=== PATIENT | male | born 1990 | race Caucasian/White ===

== ENCOUNTER 2016-09-05 13:41 | Emergency (ER) | payer MEDICAID, OTHER ==
[~2016-09-05] VITALS: Ht 182.9 cm; Wt 138.5 kg
[~2016-09-05 13:41] MED LIST: ACYC800T57 PO; IBUP-1542 PO
[2016-09-05 13:52] VITALS: Ht 182.9 cm; Wt 138.5 kg
[2016-09-05] MEDS ORDERED: CEFTRIAXONE 250 MG INJ IM ONE (14:30)
[2016-09-05] MEDS ORDERED: AZITHROMYCIN 250 MG TAB PO ONE (14:30)
[2016-09-05 14:33] LABS: URINE BLOOD (Dip) POC Negative (NEGATIVE)
--- NOTE | 2016-09-05 14:33 | ERD ---
ER Documentation Chief Complaint Date/Time DATE: 09/05/16 TIME: 14:31 Chief Complaint genital problem HPI This is a 26-year-old male who presents to the emergency department today to be treated for sexually transmitted infection. Patient stated that he had intercourse with somebody that was outside of his normal relationship and that person had tested positive for chlamydia. Patient denies any fevers, chills, dysuria, penile discharge, abdominal pain. ROS All systems reviewed and are negative except as per history of present illness. Medications Home Meds Active Scripts Acyclovir* (Zovirax*) 800 Mg Tablet, 800 MG PO 5 TIMES DAILY for 7 Days, TAB Prov:SHERI GEORGE 10/10/15 Ibuprofen* (Motrin*) 600 Mg Tab, 600 MG PO Q6, #20 TAB Prov:MARIZOL LEE PA-C 08/30/15 Allergies Allergies: Coded Allergies: No Known Allergy (Unverified , 10/10/15) PMhx/Soc History of Surgery: No Anesthesia Reaction: No Hx Neurological Disorder: No Hx Respiratory Disorders: No Hx Cardiac Disorders: No Hx Psychiatric Problems: No Hx Miscellaneous Medical Probl: No Hx Alcohol Use: Yes Hx Substance Use: Yes (Crystal meth) Hx Tobacco Use: Yes Physical Exam Vitals Vital Signs Date Time Temp Pulse Resp B/P Pulse Ox O2 Delivery O2 Flow Rate FiO2 09/05/16 13:52 98.0 92 19 135/70 100 Physical Exam Const: Obese, no acute distress Head: Atraumatic Eyes: Normal Conjunctiva ENT: Normal External Ears, Nose and Mouth. Neck: Full range of motion..~ No meningismus. Resp: Clear to auscultation bilaterally Cardio: Regular rate and rhythm, no murmurs Abd: Soft, non tender, non distended. Normal bowel sounds Skin: No petechiae or rashes Neur: Awake and alert Psych: Normal Mood and Affect Results 24 hrs Laboratory Tests Test 09/05/16 14:35 Bedside Urine pH (LAB) 6.5 Bedside Urine Protein (LAB) Negative Bedside Urine Glucose (UA) Negative Bedside Urine Ketones (LAB) Negative Bedside Urine Blood Negative Bedside Urine Nitrite (LAB) Negative Bedside Urine Leukocyte Esterase (L Negative Current Medications Medications (Trade) Dose Ordered Sig/Peggy Route PRN Reason Start Time Stop Time Status Last Admin Dose Admin Ceftriaxone Sodium (Rocephin) 250 mg ONCE ONCE IM 09/05/16 14:30 09/05/16 14:31 DC 09/05/16 14:33 Azithromycin (Zithromax) 1,000 mg ONCE ONCE PO 09/05/16 14:30 09/05/16 14:31 DC 09/05/16 14:32 Procedures/MDM This 26-year-old male who presents to the emergency department today to be treated for possible chlamydia. Patient is in the exam room with his partner who is also requesting to be tested. Patient indicated that he had intercourse with somebody outside of his normal relationship and that person had chlamydia. Patient denied any symptoms at this time. He has no abdominal pain on physical exam. Patient declined a general exam and will therefore be treated empirically with Rocephin and azithromycin for gonorrhea and chlamydia. I did obtain a UA and the urine was sent for gonorrhea and chlamydia UA is negative for infection. Patient was instructed to have all sexual partners tested and treated prior to sexual intercourse. Patient understood At this time the patient is stable for discharge and outpatient management. Patient should follow up with their PCP in the next 1-2 days. They may return to the emergency department sooner for any persistent or worsening of symptoms. Patient understood and agreed with the plan. JAI WADE PA-C September 05, 2016 14:33
== END 2016-09-05 15:07 | disposition home or self-care (01) ==
LOC: FTE 13:41
DX: Z11.3 Encounter for screening for infections with a predominantly sexual mode of transmission (principal); Z87.891 Personal history of nicotine dependence
CPT/HCPCS: 81003; 87591; 96372; J0696; Z7502; Z7610

== ENCOUNTER 2017-03-15 15:20 | Emergency (ER) | payer OTHER ==
[~2017-03-15] VITALS: Ht 180.3 cm; Wt 130.0 kg
[2017-03-15 15:39] VITALS: Ht 180.3 cm; Wt 130.0 kg
[2017-03-15] MEDS ORDERED: ACETAMINOPHEN 500 MG TAB PO STA (17:05)
[2017-03-15] MEDS ORDERED: CEPHALEXIN 500 MG CAP PO STA (17:05)
[2017-03-15] MEDS ORDERED: TRIMETHOPRIM/SULFAMETHOX (DS) TAB PO STA (17:05)
[2017-03-15] MEDS ORDERED: SULF1TAB31 PO (17:07)
[2017-03-15] MEDS ORDERED: CEPH-443 PO (17:07)
--- NOTE | 2017-03-15 17:31 | ERD ---
ER Documentation Chief Complaint Chief Complaint right forearm pain following inj of meth, missed the vein, swollen/px x3day HPI 26-year-old female presenting to the emergency department complaining of moderate right forearm pain and redness status post injecting meth 2 days prior to being seen. She denies any restricted range of motion. Denies fevers. Denies medications today ROS All systems reviewed and are negative except as per history of present illness. Medications Home Meds Active Scripts Sulfamethoxazole/Trimethoprim* (Bactrim Ds* Tablet) 1 Each Tablet, 1 TAB PO BID , #14 TAB Prov:BEATRIZ BENJAMIN PA-C 03/15/17 Cephalexin* (Keflex*) 500 Mg Capsule, 500 MG PO QID for 7 Days, CAP Prov:BEATRIZ BENJAMIN PA-C 03/15/17 Acyclovir* (Zovirax*) 800 Mg Tablet, 800 MG PO 5 TIMES DAILY for 7 Days, TAB Prov:SHERI GEORGE 10/10/15 Ibuprofen* (Motrin*) 600 Mg Tab, 600 MG PO Q6, #20 TAB Prov:MARIZOL LEE PA-C 08/30/15 Allergies Allergies: Coded Allergies: No Known Allergy (Unverified , 03/15/17) PMhx/Soc Medical and Surgical Hx: pt denies Medical Hx, pt denies Surgical Hx History of Surgery: No Anesthesia Reaction: No Hx Neurological Disorder: No Hx Respiratory Disorders: No Hx Cardiac Disorders: No Hx Psychiatric Problems: No Hx Miscellaneous Medical Probl: No Hx Alcohol Use: Yes Hx Substance Use: Yes (Crystal meth) Hx Tobacco Use: Yes Smoking Status: Current every day smoker Physical Exam Vitals Vital Signs Date Time Temp Pulse Resp B/P Pulse Ox O2 Delivery O2 Flow Rate FiO2 03/15/17 15:39 99.6 97 20 159/74 99 Physical Exam Const: [] Head: Atraumatic Eyes: Normal Conjunctiva ENT: Normal External Ears, Nose and Mouth. Neck: Full range of motion..~ No meningismus. Resp: Clear to auscultation bilaterally Cardio: Regular rate and rhythm, no murmurs Abd: Soft, non tender, non distended. Normal bowel sounds Skin: warm erythema induration patch on right forearm ~8cm patch Back: No midline or flank tenderness Ext: No cyanosis, or edema Neur: Awake and alert Psych: Normal Mood and Affect Results 24 hrs Current Medications Medications (Trade) Dose Ordered Sig/Peggy Route PRN Reason Start Time Stop Time Status Last Admin Dose Admin Acetaminophen (Tylenol Tab) 1,000 mg ONCE STAT PO 03/15/17 17:05 03/15/17 17:07 DC Cephalexin (Keflex) 500 mg ONCE STAT PO 03/15/17 17:05 03/15/17 17:07 DC Trimethoprim/ Sulfamethoxazole (Bactrim (Ds)) 1 tab ONCE STAT PO 03/15/17 17:05 03/15/17 17:07 DC Procedures/MDM This is a 26-year-old male presenting to the emergency department with cellulitis of the right forearm status post injecting meth 2 days prior to being seen. Patient is afebrile, he appears well he does not seem to be septic. Patient is appropriate for outpatient care and stable to be discharged home to follow-up with primary care physician. Option for Keflex Bactrim and Tylenol was provided, first dose in the ED. Return precautions were provided. Departure Diagnosis: Primary Impression: Cellulitis Condition: Stable Patient Instructions: Cellulitis Referrals: DOCTOR,NOT ON STAFF (PCP) Additional Instructions: Follow up in 2 days in your clinic for wound check. Return to this facility if you are not improving as expected. FOLLOW UP WITH YOUR PRIMARY CARE PHYSICIAN TOMORROW.Return to this facility if you are not improving as expected. BEATRIZ BENJAMIN PA-C Mar 15, 2017 17:31
[2017-03-15] MEDS ORDERED: traMADol 50 MG TAB PO STA (17:43)
== END 2017-03-15 18:02 | disposition home or self-care (01) ==
LOC: FTE 15:20
DX: L03.113 Cellulitis of right upper limb (principal); F17.210 Nicotine dependence, cigarettes, uncomplicated
CPT/HCPCS: Z7502; Z7610; 99284